=== PATIENT | male | born 2000 | race Caucasian/White ===

== ENCOUNTER 2024-09-10 12:03 | Emergency (ER) | payer BC, OTHER ==
[2024-09-10] MEDS ORDERED: NA CHLORIDE 0.9% 1,000 ML ONE (12:51)
[2024-09-10] MEDS ORDERED: ONDANSETRON 4 MG/2 ML VIAL ONE (12:51)
[2024-09-10 12:57] LABS: Absolute Lymphocytes (CBC) 0.9 K/uL (0.7-4.9); Absolute Monocytes 0.7 K/uL (0.1-1.3); Absolute Neutrophil 6.1 K/uL (1.8-8.0); Basophils % 0.3 % (0-1.3); Eosinophils % 0.1 % (0-4.4); Hematocrit 42.7 % (39.6-49.0); Hemoglobin 15.2 g/dL (13.6-17.9); Lymphocytes % 11.4 % (15.3-44.8); MCHC 35.6 g/dL (32.0-36.0); MPV 8.6 fL (7.6-11.3); Monocytes % 8.5 % (3.3-12.3); Neutrophils % 79.7 % (41.7-73.7); Platelets 237 thou/uL (152-406); RBC Red Blood Cell Count 4.74 M/uL (4.33-5.43); Red Cell Distribution Width 12.9 % (12.1-15.2)
[2024-09-10 13:39] LABS: Albumin 4.7 g/dL (3.4-5.0); Albumin/Globulin Ratio 1.3 (1.1-1.8); Anion Gap 11.8 mEq/L (5.0-15.0); Bilirubin Direct 0.2 mg/dL (0-0.2); Bilirubin Indirect, Calculated 0.9 mg/dL (0.2-0.8); Bilirubin Total 1.1 mg/dL (0.2-1.0); Globulin 3.6 g/dL (2.3-3.5); Potassium 3.8 mEq/L (3.5-5.1); Protein, Total 8.3 g/dL (6.4-8.2); Thyroid Stimulating Hormone 0.592 uIU/mL (0.358-3.740)
--- NOTE | 2024-09-10 14:30 | RAD REPORT ---
EXAM: CT brain without contrast HISTORY: Confusion/alteration of consciousness COMPARISON: None TECHNIQUE: Multiple contiguous axial images were obtained and a CT of the brain without contrast.. Sagittal and coronal reconstruction performed. Automated exposure control, adjustment of the mA and/or kV according to patient size, and/or iterative reconstruction. Unless otherwise specified, incidental f indings do not require dedicated imaging follow-up FINDINGS: An intracranial bleed is not seen Ventricles are normal caliber No extra-axial fluid collection noted No significant hypodensity within the brain No fluid within the visualized sinuses or mastoids noted. IMPRESSION: No acute intracranial abnormality noted. If the patient continues to have symptoms to suggest an acute intracranial abnormality then MRI of th e brain would be recommended.
--- NOTE | 2024-09-10 15:02 | EDPHYS ---
Physician Documentation [facility] Name: Constantine Saenz Age: 23 yrs Sex: Male : 2000 Arrival Date: 09/10/2024 Time: 12:03 Bed 12 Private MD: ED Physician Aubrey Dao HPI: 09/10 13:46 This 23 yrs old Male presents to ER via Ambulatory with complaints of ec2 Hallucinations. 13:46 Patient arrives today for altered mental status. Had recently had smoked some synthetic ec2 marijuana and subsequently has been having hallucinations. Does not endorse any homicidality or suicidality. Otherwise is cooperative and calm. No significant medical history, no diagnosed psychiatric diseases. No other substances noted.. Historical: - Allergies: 12:20 No Known Allergies; iw - Home Meds: 12:20 None [Active]; iw - PMHx: 12:20 None; iw - PSHx: 12:20 knee; ear tubes; Appendectomy; iw - Immunization history:: Adult Immunizations not up to date. - Infectious Disease History:: Denies. - Social history:: Smoking status: Smoking status: Patient uses street drugs. ROS: 13:47 Constitutional: as per hpi ec2 Exam: 13:47 Constitutional: GEN: NAD Head: atraumatic Eyes: EOMI Ears: External ears are ec2 normal. CV: regular rate LUNGS: no respiratory distress ABD: non-distended SKIN: no evidence of rashes MSK: no evidence of trauma. Psych: Cooperative individual was otherwise in no acute distress she denies suicidality or homicidality. Vital Signs: 12:15 BP 151 / 87; Pulse 91; Resp 16; Temp 98.3; Pulse Ox 100% on R/A; Weight 61.23 kg; iw Height 5 ft. 10 in. ; Pain 0/10; 15:00 BP 130 / 78; Pulse 88; Resp 18; Pulse Ox 100% ; Pain 0/10; iw 12:15 Body Mass Index 19.37 (61.23 kg, 177.8 cm) iw 12:15 Pain Scale: Adult iw 15:00 Pain Scale: Adult iw MDM: 12:21 ED course: Patient arrives today for evaluation of hallucinations. Examination as ec2 grossly unremarkable with a cooperative individual. will obtain labs, ekg, ctoh. 12:32 Medical Screening Exam initiated ec2 13:14 ED course: EKG independently reviewed and interpreted by me, shows normal sinus rhythm, ec2 rate of 50, no acute ST segment elevations, intervals are nonactionable.. 13:46 ED course: Lab work reviewed, nonactionable. Will obtain CT scan of the head for ec2 further evaluation of altered mental status.. 13:47 Data reviewed: vital signs, nurses notes. ec2 13:58 ED course: Father patient reports that he has back at baseline, no longer having ec2 response to external stimuli.. 15:01 ED course: On reassessment patient is well-appearing, cooperative and in no acute ec2 distress. Will discharge home. Patient also states that he took multiple sleeping medications to help him sleep and he has been having insomnia the past several nights, I suspect this is also contributing to his presentation today. Patient is otherwise not responding to external stimuli and can follow-up outpatient with psychiatry or symptoms return or worsen return to the ED.. 03 12:21 Order name: Basic Metabolic Panel; Complete Time: 13:46 ec2 09/10 12:21 Order name: CBC with Diff; Complete Time: 13:46 ec2 09/10 12:21 Order name: LFT's; Complete Time: 13:46 ec2 09/10 12:21 Order name: TSH; Complete Time: 13:46 ec2 09/10 12:21 Order name: T4 Free; Complete Time: 13:46 ec2 09/10 13:46 Order name: CT Head Brain wo Cont; Complete Time: 14:53 ec2 09/10 12:21 Order name: EKG - Nurse/Tech; Complete Time: 13:12 ec2 09/10 12:21 Order name: IV Saline Lock; Complete Time: 12:55 ec2 09/10 12:21 Order name: Labs collected and sent; Complete Time: 12:55 ec2 09/10 12:21 Order name: O2 Per Protocol; Complete Time: 13:12 ec2 Administered Medications: 13:02 Drug: NS 0.9% IV 1000 ml IV at 1000 ml once; to be given as a bolus over 60 minutes iw Route: IV; Rate: 1000 ml; Site: left antecubital; 14:00 Follow up: IV Status: Completed infusion; IV Intake: 1000ml iw 13:02 Drug: Ondansetron IVP 4 mg IVP once; over 2 minutes Route: IVP; Site: left antecubital; iw 14:00 Follow up: Response: No adverse reaction; Nausea is decreased iw Disposition Summary: 09/10/24 15:02 Discharge Ordered Notes: Location: Home ec2 Condition: Stable ec2 Diagnosis - Auditory hallucinations ec2 Followup: ec2 - With: Private Physician - When: - Reason: Re-evaluation by your physician Discharge Instructions: - Discharge Summary Sheet ec2 - Schizophrenia ec2 Forms: - Medication Reconciliation Form ec2 - Antibiotic Education ec2 - Prescription Opioid Use ec2 - Patient Portal Instructions ec2 - Leadership Thank You Letter ec2 Signatures: Dispatcher [employer] Cammie Mcconnell RN RN iw Aubrey Dao MD MD ec2 Corrections: (The following items were deleted from the chart) 12:22 12:22 BASIC METABOLIC PANEL+C.LAB.BRZ ordered. EDMS EDMS 12:22 12:22 CBC+H.LAB.BRZ ordered. EDMS EDMS 12:22 12:22 HEPATIC FUNCTION+C.LAB.BRZ ordered. EDMS EDMS 12:22 12:22 THYROID STIMULAT HORMONE+C.LAB.BRZ ordered. EDMS EDMS 12:22 12:22 T4 FREE+C.LAB.BRZ ordered. EDMS EDMS 13:46 13:46 Head Brain Wo Cont+CT.RAD.BRZ ordered. EDMS EDMS
--- NOTE | 2024-09-10 15:02 | ER ---
Nurse's Notes [facility] Name: Constantine Saenz Age: 23 yrs Sex: Male : 2000 Arrival Date: 09/10/2024 Time: 12:03 Bed 12 Private MD: Diagnosis: Auditory hallucinations Presentation: 09/10 12:15 Chief complaint: Patient states: a couple weeks ago started smoking CBD. called "crisp" iw its fake THC , he stopped a couple days ago , now not eating , not sleeping, last night i was hallucinating. has been taking sleeping pills and some NyQuil, he was vomiting this morning. Coronavirus screen: At this time, the client does not indicate any symptoms associated with coronavirus-19. Ebola Screen: No symptoms or risks identified at this time. Initial Sepsis Screen: Does the patient meet any 2 criteria? No. Patient's initial sepsis screen is negative. Does the patient have a suspected source of infection? No. Patient's initial sepsis screen is negative. Risk Assessment: Do you want to hurt yourself or someone else? Patient reports no desire to harm self or others. Onset of symptoms was September 07, 2024. 12:15 Method Of Arrival: Ambulatory iw 12:15 Acuity: NICKOLAS 3 iw Historical: - Allergies: 12:20 No Known Allergies; iw - Home Meds: 12:20 None [Active]; iw - PMHx: 12:20 None; iw - PSHx: 12:20 knee; ear tubes; Appendectomy; iw - Immunization history:: Adult Immunizations not up to date. - Infectious Disease History:: Denies. - Social history:: Smoking status: Smoking status: Patient uses street drugs. Screenin:15 [facility] ED Fall Risk Assessment (Adult) History of falling in the last 3 months, iw including since admission No falls in past 3 months (0 pts) Confusion or Disorientation No (0 pts) Intoxicated or Sedated No (0 pts) Impaired Gait No (0 pts) Mobility Assist Device Used No (0 pt) Altered Elimination No (0 pt) Score/Fall Risk Level 0 - 2 = Low Risk Oriented to surroundings, Maintained a safe environment, Educated pt \\T\\ family on fall prevention, incl call for assistance when getting out of bed. 15:15 Abuse screen: Denies threats or abuse. Denies injuries from another. Nutritional iw screening: No deficits noted. Tuberculosis screening: No symptoms or risk factors identified. Assessment: 15:15 General: Appears in no apparent distress. comfortable, Behavior is calm, cooperative. iw 15:15 Pain: Denies pain. Neuro: No deficits noted. Level of Consciousness is awake, alert, iw obeys commands, Oriented to person, place, time, situation, Ballast Inspector are equal bilaterally Moves all extremities. Gait is steady, Speech is normal, Facial symmetry appears normal. Respiratory: No deficits noted. Vital Signs: 12:15 BP 151 / 87; Pulse 91; Resp 16; Temp 98.3; Pulse Ox 100% on R/A; Weight 61.23 kg; iw Height 5 ft. 10 in. ; Pain 0/10; 15:00 BP 130 / 78; Pulse 88; Resp 18; Pulse Ox 100% ; Pain 0/10; iw 12:15 Body Mass Index 19.37 (61.23 kg, 177.8 cm) iw 12:15 Pain Scale: Adult iw 15:00 Pain Scale: Adult iw ED Course: 12:04 Patient arrived in ED. mr 12:04 Aubrey Dao MD is Attending Physician. ec2 12:19 Triage completed. iw 12:21 Arm band placed on. iw 13:00 Inserted saline lock: 20 gauge in left antecubital area, using aseptic technique. iw 13:57 Cammie Ko, RN is Primary Nurse. iw 14:10 CT Head Brain wo Cont In Process Unspecified. EDMS 15:15 Patient has correct armband on for positive identification. Bed in low position. Call iw light in reach. Adult w/ patient. Provided Education on: Discharge, follow up. 15:15 No provider procedures requiring assistance completed. IV discontinued, intact, iw bleeding controlled, No redness/swelling at site. Administered Medications: 13:02 Drug: NS 0.9% IV 1000 ml IV at 1000 ml once; to be given as a bolus over 60 minutes iw Route: IV; Rate: 1000 ml; Site: left antecubital; 14:00 Follow up: IV Status: Completed infusion; IV Intake: 1000ml iw 13:02 Drug: Ondansetron IVP 4 mg IVP once; over 2 minutes Route: IVP; Site: left antecubital; iw 14:00 Follow up: Response: No adverse reaction; Nausea is decreased iw Medication: 15:15 VIS not applicable for this client. iw Intake: 14:00 IV: 1000ml; Total: 1000ml. iw Outcome: 15:02 Discharge ordered by . ec2 15:25 Discharged to home ambulatory, with family, iw 15:25 Condition: improved iw 15:25 Discharge instructions given to patient, Instructed on discharge instructions, follow up and referral plans. Demonstrated understanding of instructions, follow-up care, medications, 16:00 Patient left the ED. iw Signatures: Dispatcher [employer] Bobbi Gardiner, Reg Reg mr Cammie Ko, RN RN iw Aubrey Dao MD MD ec2 Corrections: (The following items were deleted from the chart) 12:21 12:15 BP 151 / 87; Pulse 91bpm; Resp 16bpm; Pulse Ox 100% RA; Temp 98.3F; iw iw
[2024-09-10 16:20] VITALS: TEMP 98.3; O2SAT 100
[2024-09-10 16:22] VITALS: BP 130/78
--- NOTE | 2024-09-14 12:13 | EKG ---
Test Date: 2024-09-10 Test Time: 13:09:41 [employer]: ADAM MEASUREMENT RESULTS: Intervals: Rate: 50 TX: 132 QRSD: 106 QT: 444 QTc: 404 [place]: P: 81 TX: 132 QRS: 90 T: 83 INTERPRETIVE STATEMENTS: Sinus bradycardia Otherwise normal ECG No previous ECG available for comparison Electronically Signed On 09-14-24 12:04:51 CDT by Pj Mccarthy
== END 2024-09-10 16:00 | disposition home or self-care (01) ==
LOC: ER 12:03
DX: R44.0 Auditory hallucinations (principal)
CPT/HCPCS: 96361; 85025; 80048; 36415; 80076; 84443; 84439; 70450; 96374; 99284; J2405; J7030; 93005